=== PATIENT | female | born 1990 ===

== ENCOUNTER 2019-02-11 01:04 | Inpatient (IN) | payer OTHER ==
[2019-02-11 01:21] VITALS: BMI 27.1
[2019-02-11] MEDS ORDERED: Lactated Ringer's 1,000 ML IV ONE (01:42)
[2019-02-11] MEDS ORDERED: Lactated Ringer's 1,000 ML IV SCH ×4 (01:45→04:45)
[2019-02-11 02:26] LABS: BASO # 0.1 K/uL (0.0-0.2); BASO % 0.5 % (0.0-2.0); EOS # 0.1 K/uL (0.0-0.7); EOS % 0.7 % (0.0-4.0); HEMOGLOBIN 11.8 g/dL (12.0-16.0); LYMPH # 2.4 K/uL (1.0-4.3); MEAN CELL VOLUME 89.5 fl (81.0-99.0); MEAN CORPUSCULAR HEMOGLOBIN 29.3 pg (27.0-31.0); MEAN CORPUSCULAR HGB CONC 32.8 g/dL (33.0-37.0); MONO % 6.7 % (0.0-10.0); NEUT # 11.4 K/uL (1.8-7.0); NEUT % 76.1 % (50.0-75.0); RBC 4.03 Mil/uL (3.80-5.20); RED CELL DISTRIBUTION WIDTH 15.4 % (11.5-14.5)
[2019-02-11] MEDS ORDERED: Fentanyl/Bupivacaine HCl 250 ML EPI ONE (02:40)
--- NOTE | 2019-02-11 02:49 | OBADHP ---
Datetime: 02/11/2019 02:09 Pelvic Type - PN: Adequate Extremities - PN: Normal Abdomen - PN: Normal Back - PN: Not Done Breast - PN: Not Done Lungs - PN: Normal Heart - PN: Normal Thyroid - PN: Normal Neurologic - PN: Normal HEENT - PN: Normal General - PN: Normal Presentation-Admit: Vertex FHR - Baseline A Provider: 135 Gestation - Est Wks by US: 38.0 Pool Provider: Positive Nitrazine Provider: Positive Ferning Provider: Positive Vital Signs Provider: Reviewed; Within Normal Limits IP Chief Complaint: Uterine contractions; Suspected ruptured membranes NICHD Variability Prov Fetus A: Moderate 6-25bpm NICHD Accel Fetus A IP Provider: [id number] FHR Category Provider Fetus A: Category I NICHD Decel Fetus A IP Provider: None Genitourinary Exam: Normal DTRs - PN: Not Done IP Adm Impression: Term, intrauterine IP Admit Plan: Admit to unit; Initiate labor protocol Datetime: 02/11/2019 01:25 Admit Comment, IP Provider: 28 yo f 38 week due date 02/25/19 [employer]hovahs witnesses, present to OB ED due to contractions and suspected ROM. Patient report contraction q2min, and had ROM at 00:05 2 03/07. Otherwise patient report good movement, denies any vaginal bleed. ROS negative except mentioned in HPI PCP: [facility] ALlergy: omnicef, percocet, tamiflu Med: pnv PMH NONE PSH bunion surgery, tooth extraction OBGYN suspect delivery ( recieved 2 dose of betamethasone) PFH healthy Social denies smoking drinking or drug use. 1:28 Assessment and Plan 28 yo f 38 week due date 02/25/19 present to [facility] due to contractions and suspected ROM. Vital wnl strip reactive Cervix 1 90 -3 Admit to unit for labor Ysabri PGY1 Case discussed with Dr Tay OB Hospitalist Addendum: Pt seen and examined by me. Agree a/ above. 28 yo G1 Congregation at 38 wks admitted to L_D w/ SROM at 1205. FHT reactive. GBS negative. Epidural ordered. (ES) Amniotic Fluid Color, Provider: Clear Membranes, Provider: Ruptured Comments, ACOG Physical Exam: Cervix 1 90-3 Dilatation, Provider: 1 Effacement, Provider: 90 Station, Provider: -3
[2019-02-11] MEDS ORDERED: Oxytocin 30 UNIT in NS 500 ml 30 UNITS/500 ML BAG IV ONE ×2 (04:49→04:56)
[2019-02-11] MEDS ORDERED: OXYTOCIN/0.9 % NS 20 UNIT/1,000 ML BAG IV ONE (04:55)
[2019-02-11] MEDS ORDERED: OXYTOCIN/0.9 % NS 20 UNIT/1,000 ML BAG IV SCH (05:00)
[2019-02-11] MEDS ORDERED: Oxytocin 10 Units/ml Inj ONE (06:41)
[2019-02-11] MEDS ORDERED: Oxytocin 10 Units/ml Inj IM ONE (06:53)
[2019-02-11] MEDS ORDERED: Benzocaine/Menthol SPRAY TOP PRN ×2 (06:54→11:01)
--- NOTE | 2019-02-11 07:10 | OBDS ---
MATERNAL INFORMATION Provider Comments: Pt progressed to complete and pushed to deliver a viable male infant through jason r fluid at 0632. Loose double nuchal cord easily reduced. Apgars 9 and 9. placed on mother's abdomen. Delayed cord clamping performed and cord doubley clamped and FOB cut the cord. Cord blood collected. Placenta delivered spontaneously intact w/ a 3vc at 0636. Pt was given 10mg IM pitocin. Tear noted within the right labium minus, lateral to the introitus, repaired w/ interrupted stitches of 3-0v. Pt and baby tolerated the procedure well. QBL 300 mL LABOR SUMMARY EDC: 02/25/2019 00:00 LABOR INFORMATION Group B Beta Strep: Negative MEMBRANES Membranes Rupture Method: Spontaneous Amniotic Fluid Color: Clear Amniotic Fluid Amount: Large
[2019-02-11 07:56] VITALS: RESP 20; TEMP 98.2
[2019-02-11] MEDS ORDERED: DiphenhydrAMINE 50 mg/ml Inj IVP ONE (08:02)
[2019-02-11] MEDS ORDERED: Multivitamin With Minerals Tab PO SCH (09:00)
[2019-02-12 06:28] LABS: BASO % 0.2 % (0.0-2.0); EOS # 0.1 K/uL (0.0-0.7); EOS % 0.5 % (0.0-4.0); LYMPH # 1.8 K/uL (1.0-4.3); LYMPH % 13.5 % (20.0-40.0); MEAN CELL VOLUME 88.7 fl (81.0-99.0); MEAN CORPUSCULAR HEMOGLOBIN 29.8 pg (27.0-31.0); MEAN CORPUSCULAR HGB CONC 33.6 g/dL (33.0-37.0); MEAN PLATELET VOLUME 10.2 fl (7.2-11.7); MONO # 0.8 K/uL (0.0-0.8); MONO % 5.9 % (0.0-10.0); NEUT # 10.9 K/uL (1.8-7.0); NEUT % 79.9 % (50.0-75.0); NRBC % 0.1 % (0.0-0.0); RBC 3.22 Mil/uL (3.80-5.20); RED CELL DISTRIBUTION WIDTH 15.6 % (11.5-14.5); WHITE BLOOD COUNT 13.7 K/uL (4.8-10.8)
[2019-02-12 06:39] LABS: HEMOGLOBIN 9.6 g/dL (12.0-16.0)
[2019-02-12] MEDS: Multivitamin With Minerals Tab PO SCH (08:28)
--- NOTE | 2019-02-12 10:50 | OBPPN ---
Datetime: 02/12/2019 10:45 PP Pain Prov: Within normal limits PP Nausea Prov: Denies PP Flatus Prov: Yes PP Breasts Prov: Normal PP Heart Prov: Normal PP Lungs Prov: Normal PP Abdomen/Uterus Prov: Normal PP Lochia Prov: Normal PP Vulva/Perineum Prov: Normal PP CVA Tenderness Prov: Normal PP Extremities Prov: Normal PP Comments Phys Exam Prov: Fundus firm under umbilicus PP Impression Prov: Normal progression PP Plan Prov: Continue present management PP Progress Note Prov: Patient denies CP, no SOB, no N/V, tolerating PO diet, ambulating/voiding wel l, mild lochia, abdominal pain tolerable with meds A/P PPD #1 1. continue routine orders 2. Encourage and ambulation IP PP Procedures: None Vital Signs Provider PP: Reviewed; Within Normal Limits
--- NOTE | 2019-02-12 11:16 | OBDS ---
DELIVERY PERSONNEL Delivery Doctor: Avery Tay MD Fruit Grader Operator: Sarah Bernabe RN Anesthesiologist: oDminic Cruz MD Resident: Dr. Gandara MATERNAL INFORMATION Delivery Anesthesia: Epidural Medications in Delivery: Pitocin 10 units IM Placenta Cultured: No Maternal Complications: None Provider Comments: Pt progressed to complete and pushed to deliver a viable male through jason r fluid at 0632. Loose double nuchal cord easily reduced. Apgars 9 and 9. placed on mother's abdomen. Delayed cord clamping performed and cord doubley clamped and FOB cut the cord. Cord blood collected. Placenta delivered spontaneously intact w/ a 3vc at 0636. Pt was given 10mg IM pitocin. Tear noted within the right labium minus, lateral to the hymenal ring, repaired w/ interrupted stitc hes of 3-0v. Hemostatic midline 1st degee superficial abrasion noted. Pt and baby tolerated the pro cedure well. QBL 300 mL LABOR SUMMARY EDC: 02/25/2019 00:00 EDC: 02/25/2019 00:00 No. Babies in Womb: 1 Attempted: No Labor Anesthesia: Epidural LABOR INFORMATION Reason for Induction: Not Applicable Onset of Labor: 02/11/2019 00:05 Complete Dilatation: 02/11/2019 05:20 Oxytocin: N/A Group B Beta Strep: Negative Antibiotics # of Doses: N/A Steroids Given: None Reason Steroids Not Administered: Not Applicable MEMBRANES Membranes Rupture Method: Spontaneous Membranes Rupture Method: Spontaneous Rupture of Membranes: 02/11/2019 00:05 Length of Rupture (hrs): 6.45 Amniotic Fluid Color: Clear Amniotic Fluid Color: Clear Amniotic Fluid Amount: Large Amniotic Fluid Amount: Large STAGES OF LABOR Stage 1 hrs: 5 Stage 1 min: 15 Stage 2 hrs: 1 Stage 2 min: 12 Stage 3 hrs: 0 Stage 3 min: 4 Total Time in Labor hrs: 6 Total Time in Labor min: 31 VAGINAL DELIVERY Episiotomy: None Laceration Extension: First Degree Laceration Repair: Yes Initial Vag Sponge Count: 15 Final Vag Sponge Count: 15 Initial Vag Sharps Count: 1 Final Vag Sharps Count: 1 Sponge Count Correct: Yes Sharps Count Correct: Yes BABY A INFORMATION Delivery Date/Time: 02/11/2019 06:32 Method of Delivery: Vaginal Born in Route : No : N/A Forceps: N/A Vacuum Extraction: N/A Shoulder Dystocia : No SHOULDER DYSTOCIA BABY A Infant Delivery Date/Time: 02/11/2019 06:32 PRESENTATION/POSITION BABY A Presentation: Cephalic Cephalic Presentation: Vertex Breech Presentation: N/A PLACENTA INFORMATION BABY A Placenta Delivery Time : 02/11/2019 06:36 Placenta Method of Delivery: Spontaneous Placenta Status: Delivered SCORES BABY A Heart Rate 1 min: >100 bpm Resp Effort 1 min: Good Cry Reflex Irritability 1 min: Cough or Sneeze or Pulls Away Muscle Tone 1 min: Active Motion Color 1 min: Body [place], Extremities Blue Resuscitation Effort 1 min: Tactile Stimulation SCORE 1 MIN: 9 Heart Rate 5 min: >100 bpm Resp Effort 5 min: Good Cry Reflex Irritability 5 min: Cough or Sneeze or Pulls Away Muscle Tone 5 min: Active Motion Color 5 min: Body [place], Extremities Blue Resuscitation Effort 5 min: N/A SCORE 5 MIN: 9 INFANT INFORMATION BABY A Gestational Age at Delivery: 38.0 Gestational Status: Term Infant Outcome : Liveborn Infant Condition : Stable Infant Sex: Male Sex: Male IDENTIFICATION/MEDS BABY A ID Band Number: [id number] ID Band Location: Left Leg; Left Arm WEIGHT/LENGTH BABY A Infant Birthweight (gms): 3295 Weight (lb): 7 Weight (oz): 4 CORD INFORMATION BABY A No. Cord Vessels: 3 Nuchal Cord : Around Neck x2, Loose Cord Blood Taken: Yes Infant Suction: Mouth; Nose ASSESSMENT BABY A Complications: None Physical Findings at Delivery: Within Normal Limits Respirations: Appears Normal Supervising Law Enforcement Analyst/ALS Called : No Care By: Maksim RN Transferred To: Remains with Mother
[2019-02-13] MEDS: Multivitamin With Minerals Tab PO SCH (08:34)
--- NOTE | 2019-02-13 10:22 | OBPPN ---
Datetime: 02/13/2019 10:13 PP Pain Prov: Within normal limits PP Nausea Prov: Denies PP Flatus Prov: Yes PP Breasts Prov: Normal PP Heart Prov: Normal PP Lungs Prov: Normal PP Abdomen/Uterus Prov: Normal PP Lochia Prov: Normal PP Vulva/Perineum Prov: Normal PP CVA Tenderness Prov: Normal PP Extremities Prov: Normal PP Comments Phys Exam Prov: Fundus firm under umbilicus PP Impression Prov: Normal progression PP Plan Prov: Continue present management PP Progress Note Prov: Patient denies CP, no N/V, tolerating PO diet, ambulating/voiding well, mild lochia, abodminal pain tolerable with meds A/P PPD #2 1. Discharge pt home 2. discharge instructions reviewed IP PP Procedures: None Vital Signs Provider PP: Reviewed; Within Normal Limits
--- NOTE | 2019-02-13 10:22 | OBDCSUM ---
Datetime: 02/13/2019 07:35 Discharged to, Provider: Home Follow up at, Provider: Yannick GONZALEZ Disch Instr Activity: Normal activity Disch Instr Diet: Regular Discharge Diagnosis, Provider: Term Delivered Discharge Time: 02/12/2019 10:19 Follow up in weeks, Provider: in 4 -6 weeks.
[2019-02-13 19:45] VITALS: BP 111/73; PULSE 81; O2SAT 100
== END 2019-02-13 12:45 | disposition home or self-care (01) | DRG 807 ==
LOC: H.EROB2 01:04 → H.L&D 01:42 → H.OB/GYN 10:23
PROVIDERS: ADMIT Obstetrics & Gynecology; ATTEND Obstetrics & Gynecology
PROC: 10E0XZZ Delivery of Products of Conception, External Approach (ICD-10-PCS; principal; 2019-02-11)
PROC: 0HQ9XZZ Repair Perineum Skin, External Approach (ICD-10-PCS; 2019-02-11)
PROC: 4A1HXCZ Monitoring of Products of Conception, Cardiac Rate, External Approach (ICD-10-PCS; 2019-02-11)
DX: O70.0 First degree perineal laceration during delivery (principal); Z37.0 Single live birth; O69.81X0 Labor and delivery complicated by cord around neck, without compression, not applicable or unspecified; Z3A.38 38 weeks gestation of pregnancy

== ENCOUNTER 2019-03-02 19:43 | Emergency (ER) | payer OTHER ==
[2019-03-02 19:57] VITALS: O2SAT 98
[2019-03-02 19:58] VITALS: BMI 23.9
[2019-03-02] MEDS ORDERED: Sodium Chloride 0.9% 1,000 ML IV STA (20:36)
--- NOTE | 2019-03-02 20:40 | ED PDOC ---
HPI: Female Pain Time Seen by Provider: 03/02/19 20:07 Chief Complaint (Nursing): Female Genitourinary Chief Complaint (Provider): vaginal bleeding History Per: Patient History/Exam Limitations: no limitations Onset/Duration Of Symptoms: Days (3) Current Symptoms Are (Timing): Still Present Additional Complaint(s): 28 y/o female presents for evaluation of heavy vaginal bleeding x 3 days. Patient states she gave vaginally on 02/11/19, had some heavy vaginal bleeding afterwards and was receiving extra Pitocin injections because she can not have blood transfusions for evangelical reasons, and bleeding stopped a few days after. Patient states heavy bleeding returned 3 days ago, with large clots. Denies fever, headache, dizziness, nausea/vomiting, chest pain, shortness of breath, palpitations, abdominal pain, pelvic pain, dysuria. Wire Puller: Dr. Matt Lanier Past Medical History Reviewed: Historical Data, Nursing Documentation, Vital Signs Vital Signs: Last Vital Signs Temp 98.4 F 03/02/19 19:57 Pulse 99 H 03/02/19 19:57 Resp 16 03/02/19 19:57 BP 115/65 03/02/19 19:57 Pulse Ox 98 03/02/19 19:57 Primary Care Provider: Eloise Lanier - Medical History PMH: Mitral Valve Prolapse Denies: Depression, Diabetes, HTN - Family History Family History: States: Unknown Family Hx - Living Arrangements Living Arrangements: With Family - Immunization History Hx Tetanus Toxoid Vaccination: No Hx Influenza Vaccination: Yes Hx Pneumococcal Vaccination: No - Home Medications Home Medications: Ambulatory Orders Medication Instructions Recorded Multivit/Folic Acid/I 1 tab PO DAILY 02/11/19 [] Benzocaine/Menthol NURSING HOME [Dermoplast] 1 sprays TOP Q6 PRN aero 02/13/19 Ibuprofen [Motrin Tab] 600 mg PO Q6 PRN #20 tab 02/13/19 Nitrofurantoin Macrocrystals 100 mg PO BID #9 cap 03/02/19 [Macrobid] - Allergies Allergies/Adverse Reactions: Allergies Allergy/AdvReac Type Severity Reaction Status Date / Time acetaminophen [From Percocet] Allergy VOMITING Verified 01/05/19 21:26 cefdinir [From Omnicef] Allergy RASH Verified 06/13/18 12:43 oseltamivir [From Tamiflu] Allergy VOMITING Verified 06/13/18 12:44 oxycodone [From Percocet] Allergy VOMITING Verified 01/05/19 21:26 Review of Systems ROS Statement: Except As Marked, All Systems Reviewed And Found Negative Genitourinary Female: Positive for: Vaginal Bleeding Physical Exam - Reviewed Nursing Documentation Reviewed: Yes Vital Signs Reviewed: Yes - Physical Exam Appears: Positive for: Well, Non-toxic, No Acute Distress Head Exam: Positive for: ATRAUMATIC, NORMAL INSPECTION, NORMOCEPHALIC Skin: Positive for: Normal Color Eye Exam: Positive for: Normal appearance ENT: Positive for: Normal ENT Inspection Cardiovascular/Chest: Positive for: Regular Rate, Rhythm Respiratory: Positive for: Normal Breath Sounds Gastrointestinal/Abdominal: Positive for: Bowel Sounds, Soft, Tenderness (inferior to umbilicus) Pelvic Exam: Positive for: External Exam Normal, Tender Uterus, Other (exam tiltrotor crew chief Karen Mathews RN). Negative for: Active Bleeding, Tender Adnexa Back: Positive for: Normal Inspection Extremity: Positive for: Normal ROM Neurological/Psych: Positive for: Awake, Alert, Oriented (x3) - Laboratory Results Result Diagrams: 03/02/19 20:40 03/02/19 20:40 - ECG O2 Sat by Pulse Oximetry: 98 - Progress ED Course And Treament: -cbc -cmp -urinalysis - TV u/s EXAM: US Pelvis, Complete Transvaginal and Transabdominal COMPARISON: None provided. CLINICAL HISTORY: 2 wks post vaginal delivery. bleeding TECHNIQUE: Transvaginal and transabdominal pelvic ultrasound (complete) with image documentation. FINDINGS: ENDOMETRIUM: Thickening of the endometrium noted measuring between 1.8-2.4 cm in AP dimensi on. Some retained products of conception cannot be excluded. UTERUS/CERVIX: The uterus appears mildly prominent in size measuring 10.8 x 5.0 x 7.6 cm in longitudinal, AP and transverse dimensions respectively. This is compatible with a recent uterus. No uterine fibroid or other mass evident. RIGHT OVARY: Normal Doppler flow. No abnormal mass. A few tiny follicles are present. LEFT OVARY: Normal Doppler flow. No abnormal mass. FREE FLUID: No free fluid. IMPRESSION: 1. Mildly prominent uterine size compatible with recent uterus. 2. Thickening of the endometrium as described above. Retained products of conception cannot be excluded. 3. A few tiny right ovarian follicles are present. Potassium PO given Case discussed with Dr. Dhaliwal, Wire Puller on-call; states if no active bleeding patient can follow up with their private boring machine set up operator as outpatient Patient educated on findings, discharged with rx Macrobid (dose given in ED) Advised follow up Wire Puller within 2 days Return precautions given Disposition - Clinical Impression Clinical Impression: Urinary tract infection, Vaginal bleeding - Patient ED Disposition Is Patient to be Admitted: No Counseled Patient/Family Regarding: Studies Performed, Diagnosis, Need For Followup, Rx Given - Disposition Disposition: Routine/Home Disposition Time: 23:38 Condition: IMPROVED Prescriptions: Nitrofurantoin Macrocrystals [Macrobid] 100 mg PO BID #9 cap Instructions: Urinary Tract Infections in Adults, Normal Bleeding After Having a Baby Forms: [facility] (Guatemalan)
[2019-03-02 21:28] LABS: BASO # 0.1 K/uL (0.0-0.2); BASO % 0.9 % (0.0-2.0); EOS # 0.1 K/uL (0.0-0.7); HEMOGLOBIN 11.4 g/dL (12.0-16.0); LYMPH # 2.4 K/uL (1.0-4.3); MEAN CELL VOLUME 87.6 fl (81.0-99.0); MEAN CORPUSCULAR HEMOGLOBIN 29.4 pg (27.0-31.0); MEAN CORPUSCULAR HGB CONC 33.5 g/dL (33.0-37.0); MEAN PLATELET VOLUME 10.3 fl (7.2-11.7); MONO # 0.6 K/uL (0.0-0.8); MONO % 6.1 % (0.0-10.0); NEUT # 7.2 K/uL (1.8-7.0); RBC 3.87 Mil/uL (3.80-5.20); RED CELL DISTRIBUTION WIDTH 14.8 % (11.5-14.5); WHITE BLOOD COUNT 10.4 K/uL (4.8-10.8)
[2019-03-02 21:30] LABS: URINE BACTERIA RARE (<OCC); URINE BILIRUBIN NEGATIVE (NEGATIVE); URINE BLOOD MODERATE (NEGATIVE); URINE CLARITY SLIGHTY-CLOUDY (Clear); URINE COLOR YELLOW (YELLOW); URINE GLUCOSE (UA) NEG (NEGATIVE); URINE LEUKOCYTE ESTERASE MOD Leu/uL (Negative); URINE PROTEIN NEGATIVE (NEGATIVE); URINE UROBILINOGEN 0.2-1.0 mg/dL (0.2-1.0)
[2019-03-02 21:33] LABS: ALB/GLOB RATIO 1.5 (1.0-2.1); ALBUMIN 4.2 g/dL (3.5-5.0); ALT/SGPT 39 U/L (9-52); AST/SGOT 34 U/L (14-36); BLOOD UREA NITROGEN 10 mg/dl (7-17); CALCIUM 9.1 mg/dL (8.4-10.2); GFR NON-AFRICAN AMERICAN > 60
[2019-03-02] MEDS ORDERED: Potassium Chloride 20 mEq ER Tab PO ONE ×2 (23:10→23:13)
[2019-03-02 23:35] VITALS: BP 124/82; PULSE 83; RESP 18; TEMP 98.5
--- NOTE | 2019-03-03 10:31 | US ---
Date of service: 03/02/2019 HISTORY: vaginal bleeding 2 weeks post vaginal delivery COMPARISON: None available. TECHNIQUE: Transabdominal and transvaginal FINDINGS: UTERUS: Measures 10.8 x 5.0 x 7 point cm. No discrete mass is seen. Uterus is anteverted. ENDOMETRIUM: Measures thickness similar problematic in terms of assessing-is estimated to be minimum 2.4 cm. This is almost isoechoic with the background myometrium. Some retained products of conception can simulate this. A discrete focus is not identified with certainty. Some residual prominent [place] reaction is another. Conceivably trophoblastic disease is not excluded. Correlation with serial beta HCG levels in this patient who is 2 weeks is advised. CERVIX: No cervical abnormality identified. RIGHT OVARY: Measures 2.5 x 2.4 x 2.1 cm. No solid mass. Normal flow. A few normal appearing follicles are suggested. LEFT OVARY: Measures 1.9 x 1.5 x 2.0 cm. No solid mass. Normal flow. FREE FLUID: No significant free fluid noted. OTHER FINDINGS: None. IMPRESSION: Overall endometrium appears diffusely and almost amorphous Rosy thickened-an endometrial thickness of at minimum 2.4 cm is probable. No discrete focal area is identified separate from the overall thickened endometrial appearance. Differential considerations are endometrial residual hyperplasia/ status, some concomitant blending retained products of conception are another. Even trophoblastic disease here cannot be entirely excluded. Considerations/recommendations are as noted above. Close clinical follow-up management advised. Concordant results (preliminary interpretation) provided by kymberly.
== END 2019-03-02 23:45 | disposition home or self-care (01) ==
LOC: H.ER 19:43
DX: N39.0 Urinary tract infection, site not specified (principal); N93.9 Abnormal uterine and vaginal bleeding, unspecified; I34.1 Nonrheumatic mitral (valve) prolapse; Z88.1 Allergy status to other antibiotic agents; Z88.5 Allergy status to narcotic agent; R93.89 Abnormal findings on diagnostic imaging of other specified body structures
CPT/HCPCS: 76830; 80053; 81003; 81025; 85025; 96360; 99284; J7030